=== PATIENT | male | born 1985 | race Caucasian/White ===

== ENCOUNTER 2020-03-21 13:15 | Emergency (ER) | payer BC, OTHER ==
[~2020-03-21] VITALS: Ht 182.9 cm; Wt 104.3 kg
[2020-03-21 13:24] VITALS: BP 107/81
[2020-03-21] MEDS ORDERED: SODIUM CHLORIDE 0.9% 1,000 ML IV ONE (17:45)
[2020-03-21] MEDS ORDERED: methylPREDNISolone SOD SUCC 125 MG/2 ML VL IV ONE (17:45)
[2020-03-21] MEDS ORDERED: ACETAMINOPHEN 325 MG TAB PO ONE (17:45)
[2020-03-21] MEDS ORDERED: IPRATROPIUM BROM 0.5 MG/2.5ML INH SOL NEB SCH (17:50)
[2020-03-21] MEDS ORDERED: ALBUTEROL SULF 2.5 MG/0.5ML(0.5%) NEB SOLN NEB SCH (17:50)
== END 2020-03-21 20:38 | disposition home or self-care (01) ==
LOC: ER 13:15
DX: U07.1 COVID-19 (principal); R06.00 Dyspnea, unspecified; R05 Cough
CPT/HCPCS: 36600; 71045; 82805; 94640; 99284; J7644

== ENCOUNTER → 2020-12-17 | Outpatient (CLI) | payer BC | END | disposition home or self-care (01) | LOC: LAB 16:21 | PROVIDERS: ATTEND Nurse Practitioner Family | DX: Z20.822 Contact with and (suspected) exposure to COVID-19 (principal) | CPT/HCPCS: C9803; U0003 ==